=== PATIENT | female | born 1960 | race Caucasian/White ===

== ENCOUNTER 2019-04-09 20:30 | Inpatient (IN) | payer MEDICAID ==
[~2019-04-09] VITALS: Ht 157.5 cm; Wt 54.5 kg
--- NOTE | 2019-04-09 20:52 | NUR ---
PT TO ROOM 2113 VIA STRETCHER ACCOMPANIED BY EMT'S AND DAUGHTER.
[2019-04-09] MEDS ORDERED: ADVAIR HFA 45/212 GM INH (20:54)
[2019-04-09] MEDS ORDERED: ALBUTEROL SULF8.5 GM INH (20:55)
[2019-04-09] MEDS ORDERED: SINEQUAN50 MG PO (20:56)
[2019-04-09] MEDS ORDERED: ZITHROMAX250 MG (20:58)
[2019-04-09] MEDS ORDERED: OMEPRAZOLE20 M1 PO (20:58)
[2019-04-09] MEDS ORDERED: PREDNISONE20 MG (20:59)
[2019-04-09] MEDS ORDERED: LUNESTA1 MG PO (22:44)
[2019-04-09 23:09] VITALS: BP 101/58; BMI 20.9
[2019-04-10] VITALS: BP 100/65
[2019-04-10 04:00] VITALS: BP 99/53
[2019-04-10 06:10] LABS: HEMATOCRIT 30.9 % (36.0-48.0); HEMOGLOBIN 9.7 g/dL (12-16); MCH 28.5 pg (26.0-34.0); MCHC 31.4 g/dL (31.0-37.0); MCV 90.9 fL (80.0-100.0); MEAN PLATELET VOLUME 11.9 fL (7.4-10.4); PLATELET COUNT 346 10x3/uL (130-400); RDW 16.4 % (11.5-14.5); WBC 24.5 10x3/uL (4.8-10.8)
[2019-04-10 06:16] LABS: CALC OSMOLALITY 275 mosm/kg (275-300); CARBON DIOXIDE 25.2 mmol/L (21.0-32.0); CHLORIDE - SERUM 107 mmol/L (98-107); CREATININE - SERUM 0.6 mg/dL (0.6-1.3); GLUCOSE 91 mg/dL (74-106); MAGNESIUM - SERUM 2.3 mg/dL (1.8-2.4); PHOSPHOROUS 2.3 mg/dL (2.5-4.9); POTASSIUM - SERUM 4.2 mmol/L (3.5-5.1); SODIUM 138 mmol/L (136-145); UREA NITROGEN 13 mg/dL (7-18); eGFR NON AFRICAN AMERICAN > 90 mL/min (90-120)
[2019-04-10 06:30] LABS: INR 1.91 (0.85-1.17); PROTIME 21.2 SECONDS (11.6-15.0)
[2019-04-10 06:31] LABS: D-DIMER-QUANTITATIVE 1.94 ug/mLFEU (0.20-0.54)
[2019-04-10 06:33] LABS: BASOPHILS 1 % (0-2); EOSINOPHILS 1 % (0-7); LYMPHOCYTES 5 % (15-50); MONOCYTES 6 % (2-11); NEUTROPHILS 84 % (40-80); PLATELET ESTIMATE NORMAL
--- NOTE | 2019-04-10 07:00 | NUR ---
RECEIVED REPORT. ASSUMED CARE OF PATIENT. CALL LIGHT WITHIN REACH. PATIENT SITTIN UP IN BED. RESP EVEN AND UNLABORED BUT SAT IS 88% ON 5L. ENCOURAGED PATIENT TO COUGH AND DEEP BREATH. PATIENT IS PRODUCING COPIOUS AMOUNTS OF GREENISH/DARK YELLOW SPUTUM. PATIENTS DAUGHTER AT BEDSIDE. NO ACUTE DISTRESS.
[2019-04-10 07:56] VITALS: BP 93/55
--- NOTE | 2019-04-10 08:00 | NUR ---
SPUTUM CULTURE TAKEN TO LAB.
[2019-04-10 09:18] VITALS: Ht 157.5 cm; Wt 54.5 kg
--- NOTE | 2019-04-10 09:35 | NUR ---
PATIENT NOW ON HIFLOW 7L AND HUMIDIFIED. RESTING IN BED. NO DISTRESS.
--- NOTE | 2019-04-10 11:14 | NUR ---
PATIENT OFF UNIT FOR CTA OF CHEST.
[2019-04-10 11:19] VITALS: BP 91/57
--- NOTE | 2019-04-10 11:30 | NUR ---
PATIENT RETURNED FROM CTA AT THIS TIME. NO DISTRESS.
--- NOTE | 2019-04-10 14:57 | NUR ---
DISCOUNT CARD HOTEL STAY PROVIDED TO PATIENTS FAMILY AT THIS TIME.
[2019-04-10 15:15] VITALS: BP 91/55
--- NOTE | 2019-04-10 18:13 | NUR ---
UNABLE TO COLLECT A URINE SPECIMEN, PATIENT CONTAMINATES IT. PATIENT HAS A BOWEL MOVEMENT EVERYTIME SHE HAS TO URINATE.
[2019-04-10 19:55] VITALS: BP 88/45
--- NOTE | 2019-04-10 22:38 | NUR ---
PM MEDS GIVEN PER ORDERS. NEW IV STARTED PER FAMILY'S REQUEST STATING OLD IV HAD BEEN THERE FOR 8 DAYS IN [place]. NEW IV #20 TO RFA WITH ATTEMPT X1. PT TOLERATED ACTIVITY WELL. SR UP X1, CALL LIGHT WITHIN REACH ANDFAMILY AT BEDSIDE.
--- NOTE | 2019-04-10 23:10 | NUR ---
PT PLAYING ON HER PHONE. NO DISTRESS NOTED. SR UP X1, CALL LIGHT WITHIN REACH.
[2019-04-11 00:21] VITALS: BP 87/46
--- NOTE | 2019-04-11 00:21 | NUR ---
PT AWAKE; DENIES ANY DISCOMFORT. CALL LIGHT WITHIN REACH.
--- NOTE | 2019-04-11 01:59 | NUR ---
PT AWAKE; NO DISTRESS NOTED. CALL LIGHT WITHIN REACH.
--- NOTE | 2019-04-11 04:42 | NUR ---
PT UP TO BSC. DAUGHTER AT BEDSIDE.
[2019-04-11 04:49] VITALS: BP 95/46
[2019-04-11 05:38] LABS: BASOPHILS 0.1 % (0-2); EOSINOPHILS 0 % (0-7); HEMATOCRIT 30.4 % (36.0-48.0); HEMOGLOBIN 9.5 g/dL (12-16); IMMATURE GRANULOCYTES 1.5 % (0-5); LYMPHOCYTES 3.5 % (15-50); MCH 28.4 pg (26.0-34.0); MCHC 31.3 g/dL (31.0-37.0); MEAN PLATELET VOLUME 11.9 fL (7.4-10.4); MONOCYTES 1.9 % (2-11); RBC 3.34 10x6/uL (4.00-5.40); RDW 16.3 % (11.5-14.5)
[2019-04-11 05:39] LABS: PLATELET COUNT 456 10x3/uL (130-400); WBC 16.1 10x3/uL (4.8-10.8)
[2019-04-11 05:44] LABS: CALC OSMOLALITY 283 mosm/kg (275-300); CARBON DIOXIDE 27.4 mmol/L (21.0-32.0); CHLORIDE - SERUM 108 mmol/L (98-107); CREATININE - SERUM 0.7 mg/dL (0.6-1.3); GLUCOSE 130 mg/dL (74-106); MAGNESIUM - SERUM 2.4 mg/dL (1.8-2.4); PHOSPHOROUS 2.4 mg/dL (2.5-4.9); POTASSIUM - SERUM 3.7 mmol/L (3.5-5.1); SODIUM 142 mmol/L (136-145); UREA NITROGEN 11 mg/dL (7-18); eGFR NON AFRICAN AMERICAN > 90 mL/min (90-120)
--- NOTE | 2019-04-11 06:00 | NUR ---
VSS THIS AM. PT DENIED ANY DISCOMFORT. HIBICLENS BATH DONE. LINENS CHANGED. NEEDS MET; WILL CONTINUE TO MONITOR.
[2019-04-11 07:53] VITALS: BP 102/59
[2019-04-11 11:28] VITALS: BP 84/55
--- NOTE | 2019-04-11 11:45 | NUR ---
URINE SPECIMEN FINALLY ABLE TO BE SENT TO THE LAB.
[2019-04-11 12:17] LABS: APPEARANCE CLEAR (CLEAR); BILIRUBIN NEGATIVE (NEGATIVE); COLOR YELLOW (YELLOW); GLUCOSE 50 mg/dL (NEGATIVE); KETONE NEGATIVE (NEGATIVE); NITRITE NEGATIVE (NEGATIVE); PROTEIN 1+ mg/dL (NEGATIVE); UROBILINOGEN NORMAL (NORMAL)
[2019-04-11 12:19] LABS: BACTERIA FEW /hpf (NEGATIVE); EPITHELIAL CELLS 0-5 /hpf (0-5); RED CELLS - URINE NONE SEEN /hpf (0-5); WHITE CELLS - URINE 0-5 /hpf (NEGATIVE); YEAST <1+ /hpf (NONE SEEN)
--- NOTE | 2019-04-11 13:20 | NUR ---
WET WIPES PROVIDED AT THIS TIME.
--- NOTE | 2019-04-11 15:11 | NUR ---
OBTAINED NEW ORDER FOR ONCOLOGY MOUTHWASH FOR PATIENT QID.
--- NOTE | 2019-04-11 15:24 | NUR ---
FRESH TEA PROVIDED TO PATIENT. NO DISTRESS.
[2019-04-11 15:32] VITALS: BP 88/49
[2019-04-11 20:30] VITALS: BP 91/53
--- NOTE | 2019-04-11 23:02 | NUR ---
INITIAL ROUNDS COMPLETED AT 1915 HRS. PT DENIED ANY DISCOMFORT. DAUGHTER AT BEDSIDE. ASSESSMENT COMPLETED AT 1940 HRS. VSS. SR PER CM HR 84. O2 7L HF O2. ALERT AND ORIENTED TO PERSON, PLACE AND TIME. ZARCO. IV TO RFA WITH NS AT 50CC/HR. IV PATENT. LUNGS DIMINISHED ON R SIDE, L BASE. ABD SOFT WITH ACTIVE BS NOTED. MOUTH RED AND SWOLLEN. PM MEDS GIVEN. PT CURRENTLY RESTING WITH EYES CLOSED. RESP EVEN AND REGULAR. SR UP X1, CALL LIGHT WITHIN REACH.
--- NOTE | 2019-04-12 00:28 | NUR ---
PT AWAKE; DENIES ANY DISCOMFORT. SR UP X1,CALL LIGHT WITHIN REACH.
[2019-04-12 00:45] VITALS: BP 95/51
--- NOTE | 2019-04-12 02:07 | NUR ---
VSS. DENIES ANY DISCOMFORT. CALL LIGHT WITHIN REACH.
[2019-04-12 03:50] LABS: BASOPHILS 0.1 % (0-2); EOSINOPHILS 0 % (0-7); HEMATOCRIT 28.2 % (36.0-48.0); HEMOGLOBIN 8.8 g/dL (12-16); IMMATURE GRANULOCYTES 1.8 % (0-5); LYMPHOCYTES 3.2 % (15-50); MCH 28.5 pg (26.0-34.0); MCHC 31.2 g/dL (31.0-37.0); MCV 91.3 fL (80.0-100.0); MEAN PLATELET VOLUME 11.5 fL (7.4-10.4); MONOCYTES 4.4 % (2-11); NEUTROPHILS 90.5 % (40-80); PLATELET COUNT 475 10x3/uL (130-400); RBC 3.09 10x6/uL (4.00-5.40); RDW 16.3 % (11.5-14.5); WBC 13.5 10x3/uL (4.8-10.8)
[2019-04-12 04:09] LABS: CALC OSMOLALITY 285 mosm/kg (275-300); CALCIUM 7.9 mg/dL (8.5-10.1); CARBON DIOXIDE 27.6 mmol/L (21.0-32.0); CHLORIDE - SERUM 111 mmol/L (98-107); CREATININE - SERUM 0.6 mg/dL (0.6-1.3); GLUCOSE 134 mg/dL (74-106); MAGNESIUM - SERUM 2.4 mg/dL (1.8-2.4); PHOSPHOROUS 2.3 mg/dL (2.5-4.9); SODIUM 142 mmol/L (136-145); eGFR NON AFRICAN AMERICAN > 90 mL/min (90-120)
[2019-04-12 04:17] LABS: UREA NITROGEN 15 mg/dL (7-18)
[2019-04-12 04:25] VITALS: BP 92/61
--- NOTE | 2019-04-12 04:28 | NUR ---
PT RESTING WITH EYES CLOSED. RESP EVEN AND REGULAR. SR UP X1, CALL LIGHT WITHIN REACH.
--- NOTE | 2019-04-12 06:04 | NUR ---
VSS THROUGHOUT NIGHT. SR PER CM. PT DENIED ANY DISCOMFORT. NEEDS MET; WILL CONTINUE TO MONITOR.
[2019-04-12 08:00] VITALS: BP 89/46
--- NOTE | 2019-04-12 09:27 | NUR ---
AM MEDS GIVEN AT THIS TIME. ALSO GAVE COUGH MEDICATION. PT A/O X4, A LITTLE SOB ON 7L HF. ENCOURAGED PT TO TAKE IN DEEP BREATHS. PROVIDED PT WITH BOX OF KLENEX AND WIPES. PT DENIES ANY OTHER NEEDS AT THIS TIME. CALL LIGHT IN REACH, NAD NOTED, WILL CONTINUE TO MONITOR.
--- NOTE | 2019-04-12 11:45 | NUR ---
INFORMED PT OF NEED FOR STOOL SAMPLE. PROVIDED PT WITH COLLECTION CUP.
[2019-04-12 11:58] LABS: % SATURATION 32 % (15-55); IRON 38 ug/dl (35-150); TOTAL IRON BIND CAPACITY 116 ug/dl (260-445); UNSAT IRON BIND CAPACITY 78 ug/dl (150-375)
[2019-04-12 14:55] VITALS: BP 89/45
[2019-04-12 17:42] VITALS: BP 108/60
--- NOTE | 2019-04-12 20:16 | NUR ---
RPEORT RECIEVED ROUNDIGN COMPLETE. PATIENT LAYING IN BED IN HIGH FOWLERS. PATIENT'S DAUGHTER IS AT BEDSIDE. PATIENT HAS NASAL CANNULA HIGH FLOW IN PLACE WITH O2 AT 4L. PATIENT STATES SHE HAS NO NEEDS AT THIS TIME. PATIENT HAS A RIGHT FOREARM PIV RUNNING FLUIDS AT THIS TIME. PIV IS PATENT AND SHOWS NO S/SX OF INFILTRATION OR INFECTION. PATIENT SHOWS NO S/SX OF DISTRESS. CALL LIGHT WITHIN REACH AND BED IN LOWEST LOCKED POSITION.
[2019-04-12 20:30] VITALS: BP 101/55
--- NOTE | 2019-04-12 23:40 | NUR ---
I have reviewed this patient and I concur with the Shift Assessment completed by the Licensed Practical Nurse today this shift.
[2019-04-13 00:25] VITALS: BP 117/81
[2019-04-13 04:27] VITALS: BP 103/61
[2019-04-13 05:47] LABS: BASOPHILS 0 % (0-2); EOSINOPHILS 0 % (0-7); HEMATOCRIT 26.5 % (36.0-48.0); HEMOGLOBIN 8.3 g/dL (12-16); IMMATURE GRANULOCYTES 2.1 % (0-5); LYMPHOCYTES 4.4 % (15-50); MCH 28.5 pg (26.0-34.0); MCHC 31.3 g/dL (31.0-37.0); MCV 91.1 fL (80.0-100.0); NEUTROPHILS 86.5 % (40-80); PLATELET COUNT 522 10x3/uL (130-400); RBC 2.91 10x6/uL (4.00-5.40); RDW 16.1 % (11.5-14.5); WBC 11.2 10x3/uL (4.8-10.8)
[2019-04-13 06:02] LABS: CALC OSMOLALITY 292 mosm/kg (275-300); CALCIUM 7.9 mg/dL (8.5-10.1); CHLORIDE - SERUM 112 mmol/L (98-107); CREATININE - SERUM 0.5 mg/dL (0.6-1.3); GLUCOSE 118 mg/dL (74-106); MAGNESIUM - SERUM 2.3 mg/dL (1.8-2.4); PHOSPHOROUS 2.2 mg/dL (2.5-4.9); POTASSIUM - SERUM 4.4 mmol/L (3.5-5.1); SODIUM 146 mmol/L (136-145); UREA NITROGEN 14 mg/dL (7-18); eGFR NON AFRICAN AMERICAN > 90 mL/min (90-120)
--- NOTE | 2019-04-13 07:00 | NUR ---
RECEIVED BEDSIDE SHIFT REPORT. ASSUMED CARE OF PATIENT. CALL LIGHT WITHIN REACH. PATIENT LYING IN BED WITH EYES OPEN. DENIES ANY NEEDS. PATIENT DAUGHTER WITH EYES CLOSED IN CHAIR AT BEDSIDE. NO DISTRESS.
[2019-04-13 11:01] VITALS: BP 120/75
[2019-04-13 11:10] LABS: IMMUNOGLOBULIN A 223 mg/dL (87-352); IMMUNOGLOBULIN G 874 mg/dL (700-1600)
--- NOTE | 2019-04-13 12:24 | NUR ---
REQUEST SENT TO PHARMACY PATIENT HAS BACK TO BACK ANTIBOTICS BEING ADMINISTERED, REQUESTED PHARMACY RETIME THE MEDICATION TO 1500.
--- NOTE | 2019-04-13 13:15 | NUR ---
Nutrition Follow-up: Still not eating well. C/o of altered taste and diarrhea. Diet: Regular, Dental Soft PO intake: 25-50% yesterday Wt: 120# (04/11); 114# (04/10) Labs noted: Na 146, Glu 118, Ca 7.9, PO4 2.2 Meds noted: mouthwash, Phenergan, Solumedrol, NS @ 50, Florajen3 -Continue current diet as tolerated. -+yogurt with meals. -Need new wt; noted daily wts ordered. -RD following.
--- NOTE | 2019-04-13 15:29 | NUR ---
RESTING IN BED, NO DISTRESS. CALL LIGHT WITHIN REACH. DOING A WORD SEARCH PUZZLE. DENIES NEEDS.
--- NOTE | 2019-04-13 16:37 | NUR ---
RESTING IN BED, NO DISTRESS. CALL LIGHT WITHIN REACH.
--- NOTE | 2019-04-13 18:30 | NUR ---
SHOWER AND LINEN CHANGE COMPLETE. NO DISTRESS. IV FLUIDS INFUSING ORDERED.
--- NOTE | 2019-04-13 19:34 | NUR ---
REPORT RECIEVED AND ROUNDING COMPLETE. PATIENT LAYING IN BED IN HIGH FOWLERS, PATIENT IS RECIEVING A BREATHING TREATMENT AT THIS TIME. PATIENT STATES SHE HAS NO NEEDS AT THIS TIME. PATIENT HAS A RIGHT FOREARM PIV THAT IS RUNNING FLUIDS AT THIS TIME. PIV SHOWS NO S/SX OF INFILTRATION. PATIENT SHOES NO S/SX OF DISTRESS AT THIS TIEM. PATIENT'S DAUGHTER IS AT BEDSIDE. CALL LIGTH WITHIN REACH AND BED IN LOWEST LOCKED POSITION.
[2019-04-13 20:00] VITALS: BP 112/59
[2019-04-14] VITALS (7 sets, daily range): BP systolic 108–138; BP diastolic 52–78
--- NOTE | 2019-04-14 00:26 | NUR ---
SAUSAGE GRINDER CAME OUT OF PATIENT'S ROOM TO LET ME KNOW THAT PATIENT'S PIV WAS LEAKING. WHEN I WENT INTO LOOK IT WAS LEAKING ALL DOWN HER ARM IT NO LONGER HAS A DRAW BACK AND STINGS WHEN FLUSHED. REMOVED PATIENT'S PIV FROM RIGHT FOREARM, CATH INTACT NO BLEEDING NOTED. PLACED NEW PIV 1 STICK 22 GAUGE TO THE LEFT FOREARM. PATIENT TOLERATED WELL IV FLUIDS REPLACED. NO OTHER NEEDS AT THIS TIME. CALL LIGHT WITH IN REACH AND BED IN LOWEST LOCKED POSITION.
--- NOTE | 2019-04-14 01:57 | NUR ---
I have reviewed this patient and I concur with the Shift Assessment completed by the Licensed Practical Nurse today this shift.
[2019-04-14 06:09] LABS: IGG SUBCLASS 1 557 mg/dL (248-810); IGG SUBCLASS 2 145 mg/dL (130-555); IGG SUBCLASS 3 49 mg/dL (15-102); IGG SUBCLASS 4 3 mg/dL (2-96); IGGS - IGG SERUM 869 mg/dL (700-1600)
[2019-04-14 07:22] LABS: BASOPHILS 0 % (0-2); EOSINOPHILS 0 % (0-7); HEMATOCRIT 28.1 % (36.0-48.0); HEMOGLOBIN 8.7 g/dL (12-16); IMMATURE GRANULOCYTES 3.8 % (0-5); LYMPHOCYTES 8.7 % (15-50); MCV 90.4 fL (80.0-100.0); MEAN PLATELET VOLUME 11.8 fL (7.4-10.4); MONOCYTES 8.9 % (2-11); NEUTROPHILS 78.6 % (40-80); PLATELET COUNT 587 10x3/uL (130-400); RBC 3.11 10x6/uL (4.00-5.40); RDW 16.3 % (11.5-14.5); WBC 11.6 10x3/uL (4.8-10.8)
--- NOTE | 2019-04-14 07:26 | NUR ---
REPORT RECIEVED. RR EVEN AND UNLABORED ON 4L NC. SHE HAS A L FA PIV INFUSING NS @ 50. BED LOCKED AND IN LOWEST POSITION,CALL LIGHT WITHIN REACH. WILL CTM
[2019-04-14 07:50] LABS: CALCIUM 7.9 mg/dL (8.5-10.1); CARBON DIOXIDE 26.5 mmol/L (21.0-32.0); CHLORIDE - SERUM 110 mmol/L (98-107); CREATININE - SERUM 0.6 mg/dL (0.6-1.3); MAGNESIUM - SERUM 2.2 mg/dL (1.8-2.4); SODIUM 145 mmol/L (136-145); UREA NITROGEN 11 mg/dL (7-18); eGFR NON AFRICAN AMERICAN > 90 mL/min (90-120)
[2019-04-14 08:07] LABS: CALC OSMOLALITY 285 mosm/kg (275-300); GLUCOSE 70 mg/dL (74-106); POTASSIUM - SERUM 3.4 mmol/L (3.5-5.1)
[2019-04-14 08:09] LABS: PHOSPHOROUS 1.4 mg/dL (2.5-4.9)
--- NOTE | 2019-04-14 11:54 | NUR ---
Rehab Note- Acute Inpatient Rehab prescreen order received. The patient has [place] [employer] insurance and will require a PreAuth priro to an acute inpatient rehab stay. Will need a PT & OT Eval for PreAuth process. Will initiate PreAuth process and follow at this time. Thank you for this referral! Kitty Cui RN Clinical Liaison, [facility] Rehab
--- NOTE | 2019-04-14 15:07 | NUR ---
I AGREE WITH THE ASSESSMENT OF THE PATIENT COMPLETED BY THE DIVING INSTRUCTOR ON STAFF
--- NOTE | 2019-04-14 15:28 | MORECARE ---
CASE MANAGEMENT DISCHARGE SUMMARY PATIENT: SHERRY VALADEZ UNIT: [id number] ADM DATE: 04/09/19 AGE: 58 : 58 SEX: F ROOM/BED: D.2113 AUTHOR: MYNOR MAGAÑA PHYSICIAN: REFERRING PHYSICIAN: СЕРГЕЙ ALICEA MD DATE OF SERVICE: 04/14/19 Discharge Plan Patient Name: SHERRY VALADEZ Facility: [facility]:[place] : 1960 Planned Disposition: Home Anticipated Discharge Date: 04/14/19 Discharge Date: Expected LOS: 5 Initial Reviewer: [id number] Initial Review Date: 04/14/2019 Generated: 04/14/19 4:28 pm External Providers External Provider: Jennifer Next Contact Date: 04/14/2019 Service Request Date: Service Type: Resolution: Reviewer: Comments: Patient Name: SHERRY VALADEZ Page [phone] at 1528 All edits/amendments must be made on the electronic document DICTATION DATE: 04/14/19 1528 ACCREDITATION COORDINATOR: JOAO 04/14/19 1528 RPT#: [id number] NC DATE: STATUS: ADM IN [facility] [address] [place] [address] END OF REPORT
--- NOTE | 2019-04-14 15:48 | MORECARE ---
CASE MANAGEMENT DISCHARGE SUMMARY PATIENT: SHERRY VALADEZ UNIT: [id number] ADM DATE: 04/09/19 AGE: 58 : 58 SEX: F ROOM/BED: D.6805 AUTHOR: GÓMEZ,DOC PHYSICIAN: REFERRING PHYSICIAN: СЕРГЕЙ ALICEA MD DATE OF SERVICE: 04/14/19 Discharge Plan Patient Name: SHERRY VALADEZ Facility: [facility]:[place] : 1960 Planned Disposition: Home Anticipated Discharge Date: 04/14/19 Discharge Date: Expected LOS: 5 Initial Reviewer: [email or web address] Initial Review Date: 04/14/2019 Generated: 04/14/19 4:48 pm Comments DCP- Discharge Planning Updated by [email or web address]: Selvin Larios on 04/14/19 2:[address] Patient Name: SHERRY VALADEZ Admission Status: Elective Accout number: [id number] Admission Date: 04-09-2019 : 1960 Admission Diagnosis:SEPSIS, UNSPECIFIED ORGANISM Attending: СЕРГЕЙ ALICEA Current LOS: 5 Anticipated DC Date: 04-14-2019 Planned Disposition: Home Primary Insurance: [place] PR[place] [facility] Discharge Planning Comments: CM RECEIVED ORDER FOR OXYGEN AND NEBULIZER FOR DISCHARGE HOME. CM MET WITH PT IN ROOM TO DISCUSS DISCHARGE PLANNING AND NEEDS. PT REPORTS LIVING AT HOME INDEPENDENTLY WITH HER JUVENILE DAUGHTER. PT HAS HOME OXYGEN ONLY FROM [facility]. PT HAS NO OUTSIDE SERVICES ASSISTING IN THE HOME. CM DISCUSSED AVAILABILITY OF HOME HEALTH, REHAB SERVICES AND MEDICAL EQUIPMENT. PT DENIES DISCHARGE NEEDS OTHER THAN THE OXYGEN AND NEBULIZER. PT REPORTS HER DAUGHTER WILL PICK HER UP FOR DISCHARGE HOME. CHOICE FOR [facility] SIGNED. RN LEOPOLDO BALDWIN NOTIFIED JUNE OF [facility], , WHO TOOK OXYGEN ORDER. CM FAXED OXYGEN AND NEBULIZER ORDERS TO [facility] AT [phone]. [facility] TO ARRANGE PORTABLE OXYGEN TO HOPITAL ROOM AND HOME OXYGEN AND NEBULIZER FOR HOME DELIVERY AFTER PT ARRIVES HOME TODAY. PT NOTIFIED AND DENIES FURTHER DISCHARGE NEEDS. [facility] DELIVERED HOME OXYGEN TO ROOM FOR DISCHARGE HOME. Metalizer: Selvin Larios DCPIA - Discharge Planning Initial Assessment Updated by [id number]: Selvin Larios on 04/14/19 3:39 pm * Is the patient Alert and Oriented? Yes * How many steps to enter\exit or inside your home? * PCP JOSE ZAVALA * Pharmacy [place] [id number] * Preadmission Environment Home with Family * ADLs Independent * Equipment Oxygen * Other Equipment HOME OXYGEN ONLY - [facility] * List name and contact numbers for known caregivers / representatives who currently or will assist patient after discharge: ROBERTO SU, DTR, * Verbal permission to speak to the caregivers and representatives has been obtained from the patient. N/A * Community resources currently utilized None * Please name any agencies selected above. NONE * Additional services required to return to the preadmission environment? Yes * Can the patient safely return to the preadmission environment? Yes * Has this patient been hospitalized within the prior 30 days at any hospital? No Coverage Notice Reviewer: [id number] Brandon Larios Notice Issued Date-Time: 04/14/2019 15:30 Notice Type: Patient Choice Letter Notice Delivered To: Patient Relationship to Patient: Radial Arm Saw Operator Name: Delivery Method: HAND - Hand Delivered Janel Days: Prior Verbal Notification: Recipient Understood Notice: Yes Recipient Signature: Yes Med Rec Note Co-signed by Attending: Coverage Notice Comment: SHANTAPROSPER Last DP export: 04/14/19 2:28 pm Patient Name: SHERRY VALADEZ Page [id number] at 1548 All edits/amendments must be made on the electronic document DICTATION DATE: 04/14/191547 GUM MAKER: JOAO 04/14/19 1548 RPT#: [id number] DC DATE: STATUS: ADM IN [facility] [address] [place] [address] END OF REPORT
--- NOTE | 2019-04-14 16:09 | NUR ---
PATIENT IS IN A CHRONIC STABLE STATE PRIOR TO DISCHARGE.
[2019-04-14 17:02] LABS: CREATINE KINASE 86 UL (21-215)
[2019-04-14 17:09] LABS: TROPONIN-I < 0.017 ng/mL (0.000-0.060)
[2019-04-14 17:29] LABS: CKMB 3.7 U/L (0.0-3.6)
--- NOTE | 2019-04-14 19:25 | NUR ---
EVENING ROUNDS COMPLETED. VSS, AAOX4 . PT RECIEVING RT TX AT THIS TIME. PT ON 4L 02. NO S/S OF RT DISTRESS. ICE CHIPS PROVIDED PER REQUEST. PT DENIES ANY FURTHER NEEDS AT THIS TIME. WILL CPOC. CL WITHIN REACH, BED IN LOW SR UP X2.
[2019-04-14 23:17] LABS: CKMB 2.4 U/L (0.0-3.6); CREATINE KINASE 59 UL (21-215)
[2019-04-14 23:24] LABS: TROPONIN-I < 0.017 ng/mL (0.000-0.060)
[2019-04-15 03:07] LABS: IMMUNOGLOBULIN E <2 IU/mL (6-495)
[2019-04-15 04:00] VITALS: BP 102/54
[2019-04-15 06:21] LABS: BASOPHILS 0 % (0-2); EOSINOPHILS 0 % (0-7); HEMATOCRIT 29.7 % (36.0-48.0); HEMOGLOBIN 9.5 g/dL (12-16); IMMATURE GRANULOCYTES 3.5 % (0-5); LYMPHOCYTES 13.3 % (15-50); MCH 28.7 pg (26.0-34.0); MCV 89.7 fL (80.0-100.0); MEAN PLATELET VOLUME 11.5 fL (7.4-10.4); MONOCYTES 8.5 % (2-11); NEUTROPHILS 74.7 % (40-80); PLATELET COUNT 638 10x3/uL (130-400); RBC 3.31 10x6/uL (4.00-5.40); RDW 16.3 % (11.5-14.5); WBC 10.5 10x3/uL (4.8-10.8)
[2019-04-15 06:46] LABS: ALBUMIN 1.8 g/dL (3.4-5.0); ALKALINE PHOSPHATASE 91 U/L (46-116); ALT (SGPT) 27 U/L (10-68); AMYLASE - SERUM 31 U/L (25-115); BILIRUBIN - TOTAL 0.52 mg/dL (0.2-1.3); CALC OSMOLALITY 287 mosm/kg (275-300); CALCIUM 8.2 mg/dL (8.5-10.1); CARBON DIOXIDE 34.7 mmol/L (21.0-32.0); CHLORIDE - SERUM 107 mmol/L (98-107); CREATININE - SERUM 0.7 mg/dL (0.6-1.3); GLUCOSE 65 mg/dL (74-106); MAGNESIUM - SERUM 2.3 mg/dL (1.8-2.4); PHOSPHOROUS 2.3 mg/dL (2.5-4.9); POTASSIUM - SERUM 3.3 mmol/L (3.5-5.1); PROTEIN - SERUM 5.2 g/dL (6.4-8.2); SODIUM 145 mmol/L (136-145); UREA NITROGEN 15 mg/dL (7-18); eGFR NON AFRICAN AMERICAN > 90 mL/min (90-120)
--- NOTE | 2019-04-15 07:50 | NUR ---
PT SITTING UP IN BED. RR EVEN AND UNLABORED. DENIES NEEDS OR PAIN AT THIS TIME. BED IN LOWEST POSITION. CALL LIGHT WITHIN REACH. WILL CONTINUE TO MONITOR.
[2019-04-15 08:27] VITALS: BP 112/58
--- NOTE | 2019-04-15 09:48 | MORECARE ---
CASE MANAGEMENT DISCHARGE SUMMARY PATIENT: SHERRY VALADEZ UNIT: [id number] ADM DATE: 04/09/19 AGE: 58 : 58 SEX: F ROOM/BED: D.0053 AUTHOR: GÓMEZ,DOC PHYSICIAN: REFERRING PHYSICIAN: СЕРГЕЙ ALICEA MD DATE OF SERVICE: 04/15/19 Discharge Plan Patient Name: SHERRY VALADEZ Facility: [facility]:[place] : 1960 Planned Disposition: Home with Home Health Anticipated Discharge Date: 04/15/19 Discharge Date: Expected LOS: 6 Initial Reviewer: [id number] Initial Review Date: 04/14/2019 Generated: 04/15/19 10:48 am Comments DCP- Discharge Planning Updated by [id number]: Selvin Larios on 04/14/19 2:[address] Patient Name: SHERRY VALADEZ Admission Status: Elective Accout number: [id number] Admission Date: 04-09-2019 : 1960 Admission Diagnosis:SEPSIS, UNSPECIFIED ORGANISM Attending: СЕРГЕЙ ALICEA Current LOS: 5 Anticipated DC Date: 04-14-2019 Planned Disposition: Home Primary Insurance: [place] PRIVATE [place] [facility] Discharge Planning Comments: CM RECEIVED ORDER FOR OXYGEN AND NEBULIZER FOR DISCHARGE HOME. CM MET WITH PT IN ROOM TO DISCUSS DISCHARGE PLANNING AND NEEDS. PT REPORTS LIVING AT HOME INDEPENDENTLY WITH HER JUVENILE DAUGHTER. PT HAS HOME OXYGEN ONLY FROM [facility]. PT HAS NO OUTSIDE SERVICES ASSISTING IN THE HOME. CM DISCUSSED AVAILABILITY OF HOME HEALTH, REHAB SERVICES AND MEDICAL EQUIPMENT. PT DENIES DISCHARGE NEEDS OTHER THAN THE OXYGEN AND NEBULIZER. PT REPORTS HER DAUGHTER WILL PICK HER UP FOR DISCHARGE HOME. CHOICE FOR [facility] SIGNED. RN LEOPOLDO BALDWIN NOTIFIED JUNE OF [facility], , WHO TOOK OXYGEN ORDER. LEOPOLDO FAXED OXYGEN AND NEBULIZER ORDERS TO [facility] AT [phone]. [facility] TO ARRANGE PORTABLE OXYGEN TO HOPITAL ROOM AND HOME OXYGEN AND NEBULIZER FOR HOME DELIVERY AFTER PT ARRIVES HOME TODAY. PT NOTIFIED AND DENIES FURTHER DISCHARGE NEEDS. [facility] DELIVERED HOME OXYGEN TO ROOM FOR DISCHARGE HOME. Oil Sprayer: Selvin Larios DCPIA - Discharge Planning Initial Assessment Updated by [id number]: Selvin Larios on 04/14/19 3:39 pm * Is the patient Alert and Oriented? Yes * How many steps to enter\exit or inside your home? * PCP JOSE ZAVALA * Pharmacy [address] * Preadmission Environment Home with Family * ADLs Independent * Equipment Oxygen * Other Equipment HOME OXYGEN ONLY - [facility] * List name and contact numbers for known caregivers / representatives who currently or will assist patient after discharge: ROBERTO SU, DTR, * Verbal permission to speak to the caregivers and representatives has been obtained from the patient. N/A * Community resources currently utilized None * Please name any agencies selected above. NONE * Additional services required to return to the preadmission environment? Yes * Can the patient safely return to the preadmission environment? Yes * Has this patient been hospitalized within the prior 30 days at any hospital? No External Providers External Provider: [facility] Next Contact Date: 04/15/2019 Service Request Date: Service Type: Resolution: Reviewer: Comments: Coverage Notice Reviewer: [id number] Brandon Larios Notice Issued Date-Time: 04/14/2019 15:30 Notice Type: Patient Choice Letter Notice Delivered To: Patient Relationship to Patient: Automotive Power Electronics Engineer Name: Delivery Method: HAND - Hand Delivered Janel Days: Prior Verbal Notification: Recipient Understood Notice: Yes Recipient Signature: Yes Med Rec Note Co-signed by Attending: Coverage Notice Comment: DENEEN Fields DP export: 04/14/19 2:48 pm Patient Name: SHERRY VALADEZ Page [phone] at 0948 All edits/amendments must be made on the electronic document DICTATION DATE: 04/15/19947 SPEEDBOAT DRIVER: JOAO 04/15/19947 RPT#: [id number] DC DATE: STATUS: ADM IN [facility] [address] [place] [address] END OF REPORT
--- NOTE | 2019-04-15 09:55 | MORECARE ---
CASE MANAGEMENT DISCHARGE SUMMARY PATIENT: SHERRY VALADEZ UNIT: [id number] ADM DATE: 04/09/19 AGE: 58 : 58 SEX: F ROOM/BED: D.2113 AUTHOR: GÓMEZ,DOC PHYSICIAN: REFERRING PHYSICIAN: СЕРГЕЙ ALICEA MD DATE OF SERVICE: 04/15/19 Discharge Plan Patient Name: SHERRY VALADEZ Facility: [facility]:[place] : 1960 Planned Disposition: Home with Home Health Anticipated Discharge Date: 04/15/19 Discharge Date: Expected LOS: 6 Initial Reviewer: [id number] Initial Review Date: 04/14/2019 Generated: 04/15/19 10:54 am Comments DCP- Discharge Planning Updated by [id number]: Selvin Larios on 04/15/19 8:[address] Patient Name: SHERRY VALADEZ Encounter No: [id number] : 1960 [place] Insurance: [place] PR[place] [facility] Anticipated DC Date: 04-15-2019 Planned Disposition: Home with Home Health External Planned Provider: [facility] OFFICE DCP follow-up note: CM REVIEWED CHART AND THERAPY NOTE, SPOKE TO PT IN ROOM REGARDING DISCHARGE PLANS AND NEEDS. CM DISCUSSED REHAB OPTIONS, LOCATIONS AND PROVIDERS. PT STATES SHE HAS BEEN UP AND OUT OF BED INDEPENDENTLY, DENIES NEED OF INPATIENT OR [facility] REHAB. PT CALLED HER DAUGHTER VIA PHONE AND THEY DECIDED TO ACCEPT HOME HEALTH. PT REQUESTED [facility] IN [place] THEY HAVE A FAMILY MEMBER THAT WORKS THERE. CHOICE SIGNED. PT HAS OXYGEN IN ROOM FOR DISCHARGE HOME. PT DENIES FURTHER NEEDS, DAUGHTER REPORTS SHE WILL CASHIER ASSOCIATE PT TODAY IF DISCHARGED HOME. CM CALLED [facility], , SPOKE TO TIFFANIE AND PROVIDED REFERRAL INFORMATION. CM FAXED REFERRAL TO [facility] AT [phone]. FOR DISCHARGE, NOTIFY [facility] AT [phone]. FAX DISCHARGE INFORMATION TO [facility] AT [phone]. DAUGHTER TO TRANSPORT HOME AT DISCHARGE. Selvin Larios CASE MANAGEMENT DCP- Discharge Planning Updated by [id number]: Selvin Larios on 04/14/19 2:[address] Patient Name: SHERRY VALADEZ Admission Status: Elective Accout number: [id number] Admission Date: 04-09-2019 : 1960 Admission Diagnosis:SEPSIS, UNSPECIFIED ORGANISM Attending: СЕРГЕЙ ALICEA Current LOS: 5 Anticipated DC Date: 04-14-2019 Planned Disposition: Home Primary Insurance: [place] PRIVATE OPT[place] [facility] Discharge Planning Comments: CM RECEIVED ORDER FOR OXYGEN AND NEBULIZER FOR DISCHARGE HOME. CM MET WITH PT IN ROOM TO DISCUSS DISCHARGE PLANNING AND NEEDS. PT REPORTS LIVING AT HOME INDEPENDENTLY WITH HER JUVENILE DAUGHTER. PT HAS HOME OXYGEN ONLY FROM [facility]. PT HAS NO OUTSIDE SERVICES ASSISTING IN THE HOME. CM DISCUSSED AVAILABILITY OF HOME HEALTH, REHAB SERVICES AND MEDICAL EQUIPMENT. PT DENIES DISCHARGE NEEDS OTHER THAN THE OXYGEN AND NEBULIZER. PT REPORTS HER DAUGHTER WILL PICK HER UP FOR DISCHARGE HOME. CHOICE FOR [facility] SIGNED. RN LEOPOLDO BALDWIN NOTIFIED JUNE OF [facility], , WHO TOOK OXYGEN ORDER. CM FAXED OXYGEN AND NEBULIZER ORDERS TO [facility] AT [phone]. [facility] TO ARRANGE PORTABLE OXYGEN TO HOPITAL ROOM AND HOME OXYGEN AND NEBULIZER FOR HOME DELIVERY AFTER PT ARRIVES HOME TODAY. PT NOTIFIED AND DENIES FURTHER DISCHARGE NEEDS. [facility] DELIVERED HOME OXYGEN TO ROOM FOR DISCHARGE HOME. Latin Professor: Selvin Larios DCPIA - Discharge Planning Initial Assessment Updated by [id number]: Selvin Larios on 04/14/19 3:39 pm * Is the patient Alert and Oriented? Yes * How many steps to enter\exit or inside your home? * PCP JOSE ZAVALA * Pharmacy [address] * Preadmission Environment Home with Family * ADLs Independent * Equipment Oxygen * Other Equipment HOME OXYGEN ONLY - [facility] * List name and contact numbers for known caregivers / representatives who currently or will assist patient after discharge: ROBERTO SU DTR, * Verbal permission to speak to the caregivers and representatives has been obtained from the patient. N/A * Community resources currently utilized None * Please name any agencies selected above. NONE * Additional services required to return to the preadmission environment? Yes * Can the patient safely return to the preadmission environment? Yes * Has this patient been hospitalized within the prior 30 days at any hospital? No Coverage Notice Reviewer: [id number] - Selvin aLrios Notice Issued Date-Time: 04/14/2019 15:30 Notice Type: Patient Choice Letter Notice Delivered To: Patient Relationship to Patient: Mobility Architect Manager Name: Delivery Method: HAND - Hand Delivered Janel Days: Prior Verbal Notification: Recipient Understood Notice: Yes Recipient Signature: Yes Med Rec Note Co-signed by Attending: Coverage Notice Comment: DENEEN QUIROGA export: 04/15/19 8:48 am Patient Name: SHERRY VALADEZ Page 57638 at 0955 All edits/amendments must be made on the electronic document DICTATION DATE: 04/15/19953 BOILER WELDER: JOAO 04/15/19953 RPT#: [id number] DC DATE: STATUS: ADM IN [facility] [address] [place] [address] END OF REPORT
--- NOTE | 2019-04-15 10:05 | NUR ---
Rehab Note- The patient is requesting to discharge home & is noted to refusing an inpatient acute rehab stay. Thank you for this referral! Kitty Cui RN Clinical Liaison, [facility] Rehab
[2019-04-15 11:11] VITALS: BP 95/52
[2019-04-15] MEDS ORDERED: DIFLUCAN200 MG PO (11:48)
[2019-04-15] MEDS ORDERED: LEVOFLOXACIN500 MG PO (11:48)
[2019-04-15] MEDS ORDERED: IPRAT-ALBUT 0.5-3 ML UPD (11:49)
[2019-04-15] MEDS ORDERED: PREDNISONE10 MG PO (11:50)
[2019-04-15] MEDS ORDERED: MUCINEX DM ER1 EAC1 PO (11:50)
[2019-04-15] MEDS ORDERED: TESSALON PERLE100 MG PO (11:50)
--- NOTE | 2019-04-15 12:12 | NUR ---
I have reviewed this patient and I concur with the Shift Assessment completed by the Licensed Practical Nurse today this shift.
--- NOTE | 2019-04-15 13:02 | NUR ---
D/C INSTRUCTIONS REVIEWED WITH PT AND FAMILY MEMBER. BOTH VERBALIZED AGREEMENT AND DENIES FURTHER QUESTIONS AT THIS TIME. IV D/C WITH CATHETER TIP INTACT. PT LEAVING ON 3.5-4L NC. PT LEFT VIA WHEELCHAIR WITH ALL BELONGINGS.
== END 2019-04-15 13:51 | disposition home health service (06) | DRG 871 ==
LOC: D.M2 20:30
PROVIDERS: Family Medicine; Internal Medicine Pulmonary Disease; ADMIT Family Medicine; ATTEND Family Medicine
DX: A41.9 Sepsis, unspecified organism (principal); J15.6 Pneumonia due to other Gram-negative bacteria; J96.01 Acute respiratory failure with hypoxia; J13 Pneumonia due to Streptococcus pneumoniae; J15.212 Pneumonia due to Methicillin resistant Staphylococcus aureus; F17.213 Nicotine dependence, cigarettes, with withdrawal; R04.2 Hemoptysis; D64.9 Anemia, unspecified; K21.9 Gastro-esophageal reflux disease without esophagitis; J43.9 Emphysema, unspecified; E83.39 Other disorders of phosphorus metabolism; J31.0 Chronic rhinitis; G47.00 Insomnia, unspecified

== ENCOUNTER → 2019-10-04 11:34 | Outpatient (CLI) | payer MEDICAID ==
[2019-04-10 09:18] VITALS: BMI 20.8
[~2019-10-04 11:34] MED LIST: ADVAIR HFA 45/212 GM INH; ALBUTEROL SULF8.5 GM INH; DIFLUCAN200 MG PO; IPRAT-ALBUT 0.5-3 ML UPD; LEVOFLOXACIN500 MG PO; LUNESTA1 MG PO; MUCINEX DM ER1 EAC1 PO; OMEPRAZOLE20 M1 PO; PREDNISONE10 MG PO; PREDNISONE20 MG; SINEQUAN50 MG PO; TESSALON PERLE100 MG PO; ZITHROMAX250 MG
== END | disposition home or self-care (01) ==
LOC: D.RAD 11:34
PROVIDERS: ATTEND Internal Medicine Pulmonary Disease
DX: J44.9 Chronic obstructive pulmonary disease, unspecified (principal)

== ENCOUNTER → 2020-01-04 13:27 | Outpatient (CLI) | payer MEDICAID ==
[2019-04-10 09:18] VITALS: BMI 20.8
== END | disposition home or self-care (01) ==
LOC: D.CT 12-24 13:30
PROVIDERS: ATTEND Internal Medicine Pulmonary Disease
DX: R04.2 Hemoptysis (principal)

== ENCOUNTER → 2020-09-08 10:54 | Outpatient (CLI) | payer MEDICAID ==
[2019-04-10 09:18] VITALS: BMI 20.8
== END | disposition home or self-care (01) ==
LOC: D.RT 10:54
PROVIDERS: ATTEND Internal Medicine Pulmonary Disease
DX: J44.9 Chronic obstructive pulmonary disease, unspecified (principal); Z11.52 Encounter for screening for COVID-19